=== PATIENT | female | born 1985 | race Caucasian/White ===

== ENCOUNTER 2021-02-20 11:15 | Inpatient (IN) | payer OTHER ==
[2021-02-20 12:03] VITALS: BMI 34.9
[2021-02-20] MEDS ORDERED: ONDANSETRON 4 MG/2 ML VIAL IVPUSH PRN (12:51)
[2021-02-20] MEDS ORDERED: morphine SULFATE/PF 1 MG/2 ML (2cc Syringe - QUVA) EP ONE (12:51)
[2021-02-20] MEDS ORDERED: morphine SULFATE (PF) 1 MG/2 ML SYRINGE ONE (12:57)
[2021-02-20] MEDS ORDERED: ceFAZolin SODIUM 1 GM VIAL ONE (12:59)
[2021-02-20] MEDS ORDERED: OXYTOCIN 10 UNIT/ML 10ML MDV ONE (13:31)
[2021-02-20] MEDS ORDERED: KETOROLAC TROMETHAMINE 30 MG/1 ML VIAL ONE (13:31)
[2021-02-20] MEDS ORDERED: ACETAMINOPHEN 1000 MG/100 ML VIAL IVPB ONE (14:31)
[2021-02-20] MEDS ORDERED: OXYTOCIN 20 UNITS in 0.9% NS 20 UNIT/1,000 ML INFUS.BAG IV ONE (15:09)
[2021-02-20] MEDS ORDERED: ACETAMINOPHEN INJECTION 100 ML IVPB ONE (15:09)
[2021-02-20] MEDS ORDERED: oxyCODONE HCL 5 MG TABLET PO PRN ×2 (15:16)
[2021-02-20] MEDS ORDERED: SENNOSIDES/DOCUSATE COMBO (SENNA PLUS) TABLET (UD) PO PRN (15:16)
[2021-02-20] MEDS ORDERED: ACETAMINOPHEN 325 MG TABLET (FP) PO PRN (15:16)
[2021-02-20] MEDS ORDERED: METHYLERGONOVINE MALEATE 0.2 MG/1 ML AMP IM PRN (15:16)
[2021-02-20] MEDS ORDERED: OXYTOCIN 20 UNITS in 0.9% NS 20 UNIT/1,000 ML INFUS.BAG IV SCH (15:30)
[2021-02-20] MEDS ORDERED: CITRIC ACID/SODIUM CITRATE 30 ML UNIT-DOSE CUP PO ONE (15:31)
[2021-02-20] MEDS ORDERED: ELECTROLYTE-148 SOLN 500 ML IV ONE (15:31)
[2021-02-20] MEDS ORDERED: ELECTROLYTE-148 SOLN 1,000 ML IV SCH (15:45)
[2021-02-20] MEDS: IBUPROFEN 800 MG/8 ML IJ IVPB PRN (18:26)
[2021-02-21] MEDS: IBUPROFEN 800 MG/8 ML IJ IVPB PRN (04:23)
[2021-02-21 08:55] LABS: BASO % 0.3 % (0-2.0); EOS % 0.9 % (0-4.5); HEMATOCRIT 27.9 % (32.4-45.2); HEMOGLOBIN 9.2 GM/dL (10.7-15.3); LYMPH % 18.8 % (8-40); MCH 26.4 pg (25.7-33.7); MEAN CELL VOLUME 80.1 fl (80-96); MEAN PLT VOLUME 8.8 fl (7.5-11.1); MONO % 8.6 % (3.8-10.2); NEUT % 71.4 % (42.8-82.8); PLATELET COUNT 286 10^3/uL (134-434); RBC 3.48 M/mm3 (3.60-5.2); RDW 14.6 % (11.6-15.6); WHITE BLOOD COUNT 9.3 K/mm3 (4.0-10.0)
[2021-02-21] MEDS: PRENATAL VITAMINS W/ FOLIC ACID TABLET (FP) PO SCH (09:11)
[2021-02-21] MEDS: IBUPROFEN 600 MG TABLET (FP) PO PRN ×2 (11:27→19:37)
[2021-02-21] MEDS: SIMETHICONE 80 MG TAB.CHEW (FP) PO PRN ×2 (11:27→19:38)
[2021-02-21] MEDS ORDERED: BISACODYL 10 MG SUPP.RECT RC PRN (15:16)
[2021-02-21] MEDS: BACITRACIN 15 GM TUBE TOPICAL OINTMENT TP SCH (16:24)
[2021-02-22] MEDS: IBUPROFEN 600 MG TABLET (FP) PO PRN ×2 (07:18→15:28)
[2021-02-22] MEDS: PRENATAL VITAMINS W/ FOLIC ACID TABLET (FP) PO SCH (10:00)
[2021-02-22] MEDS: BACITRACIN 15 GM TUBE TOPICAL OINTMENT TP SCH (10:00)
[2021-02-23] MEDS: IBUPROFEN 600 MG TABLET (FP) PO PRN ×2 (01:39→10:09)
[2021-02-23] MEDS: SIMETHICONE 80 MG TAB.CHEW (FP) PO PRN ×2 (01:40→10:09)
[2021-02-23 09:05] VITALS: BP 110/62; PULSE 71; TEMP 97.8
[2021-02-23] MEDS: PRENATAL VITAMINS W/ FOLIC ACID TABLET (FP) PO SCH (10:08)
== END 2021-02-23 11:10 | disposition home or self-care (01) | DRG 788 ==
LOC: JLDR 11:15 → J3W 15:37
PROVIDERS: ADMIT Obstetrics & Gynecology; ATTEND Obstetrics & Gynecology
PROC: 10D00Z1 Extraction of Products of Conception, Low, Open Approach (ICD-10-PCS; principal; 2021-02-20)
DX: O34.211 Maternal care for low transverse scar from previous cesarean delivery (principal); Z3A.39 39 weeks gestation of pregnancy; Z37.0 Single live birth
CPT/HCPCS: 36415; 85025; 88307-TC; J0131